=== PATIENT | female | born 1970 | race Caucasian/White ===

== ENCOUNTER 2018-10-21 23:41 | Emergency (ER) | payer MEDICAID ==
[~2018-10-21] VITALS: Ht 167.6 cm; Wt 68.3 kg
[2018-10-22] MEDS ORDERED: AMOXICILLIN/POTASSIUM CLAVULANATE 875/125MG TAB PO ONE (02:00)
[2018-10-22] MEDS ORDERED: HYDROCODONE/ACETAMINOPHEN 5/325MG TABLET PO ONE (02:00)
[2018-10-22 02:04] VITALS: BP 140/65
== END 2018-10-22 02:21 | disposition home or self-care (01) ==
LOC: ER 23:41
DX: E11.9 Type 2 diabetes mellitus without complications (principal); I10 Essential (primary) hypertension; F17.200 Nicotine dependence, unspecified, uncomplicated; K04.7 Periapical abscess without sinus; Z98.890 Other specified postprocedural states
CPT/HCPCS: 81025; 99283